=== PATIENT | male | born 1960 | race Two or more races ===

== ENCOUNTER 2016-07-21 23:15 | Emergency (ER) | payer MEDICAID, OTHER ==
[~2016-07-21] VITALS: Ht 180.3 cm; Wt 142.9 kg
[2016-07-22 00:16] LABS: Basophils # (auto) 0.1 uL; Basophils % (auto) 0.9 % (0.0-2.0); Eosinophils # (auto) 0.2 uL; Hematocrit 46.5 % (41.0-53.0); Hemoglobin 15.7 g/dL (13.5-17.5); Lymphocytes # (auto) 3.6 uL; Lymphocytes % (auto) 32.7 % (10.0-50.0); Mean Corpuscular Hemoglobin 28.7 pg (28.0-32.0); Mean Corpuscular Hgb Conc. 33.7 g/dL (32.0-36.0); Mean Corpuscular Volume 85.4 fL (80.0-100.0); Mean Platelet Volume 6.5 fL (7.4-10.4); Monocytes % (auto) 9.2 % (0.0-12.0); Neutrophils % (auto) 55.2 % (37.0-80.0); Platelet Count (auto) 305 10^3/uL (140-450); SUSPECT VIEW TRANSMISSION; White Blood Cell 10.9 10^3/uL (4.4-10.8)
[2016-07-22 00:19] LABS: Albumin 4.2 g/dL (3.4-5.0); Calcium 9.4 mg/dL (8.5-10.1); Potassium 3.5 mmol/L (3.5-5.1)
[2016-07-22 00:21] LABS: Bilirubin, Total 0.3 mg/dL (0.2-1.0); Total Protein 7.9 g/dL (6.4-8.2)
[2016-07-22 04:50] LABS: Urine RBC None Seen /hpf (0 - 3)
[2016-07-22 04:59] LABS: Urine Bilirubin Negative (Negative); Urine Blood Negative /uL (Negative); Urine Ca Oxalate Crystal FEW (None Seen); Urine Color Yellow (Yellow); Urine Glucose Normal (Normal); Urine Ketone Negative (Negative); Urine Nitrite Negative (Negative); Urine Urobilinogen Normal (Negative); Urine pH 5.5 (5.0-8.0)
[2016-07-22] MEDS ORDERED: PANTOPRAZOLE SODIUM 40 MG/10 ML VIAL IV STA (06:32)
[2016-07-22] MEDS ORDERED: SODIUM CHLORIDE 0.9% 1,000 ML IV ONE (06:45)
[2016-07-22] MEDS ORDERED: HYDROmorphone HCL 2 MG/ML VL IV ONE (06:45)
[2016-07-22] MEDS ORDERED: ONDANSETRON HCL 4 MG/2 ML VIAL IV ONE (06:45)
[2016-07-22 07:09] VITALS: BP 123/85
== END 2016-07-22 09:01 | disposition home or self-care (01) ==
LOC: ER 23:18
DX: K29.70 Gastritis, unspecified, without bleeding (principal); I48.91 Unspecified atrial fibrillation; E11.9 Type 2 diabetes mellitus without complications; E78.5 Hyperlipidemia, unspecified; I10 Essential (primary) hypertension; Z85.46 Personal history of malignant neoplasm of prostate; Z91.013 Allergy to seafood
CPT/HCPCS: 36415; 76705; 80053; 81001; 82150; 83690; 84484; 85025; 93005; 94761; 96361; 96374; 96375; 99285; C9113; J1170; J2405; J7030

== ENCOUNTER 2019-08-28 07:16 | Day surgery (SDC) | payer MEDICAID ==
[~2019-08-28] VITALS: Ht 175.3 cm; Wt 147.0 kg
[~2019-08-28 07:16] MED LIST: APIX5TAB PO; DULO60CA PO; HYDR-4833 PO; HYDR12.56 PO; HYDR50CA2 PO; LOSA-39 PO; METF-490 PO; MULT-228 PO; OME20T PO; OMEG1CAP68 PO; QUET100T46 PO; SERT-160 PO; SIMV-8 PO
[2019-08-28] MEDS ORDERED: LIDOCAINE 2%HCL (LOCAL ANESTH.) INJ 20ML MDV ONE (07:42)
[2019-08-28] MEDS ORDERED: IODIXANOL 320MG/ML 100ML BTL IV ONE ×2 (07:43→08:07)
[2019-08-28] MEDS ORDERED: HEPARIN SODIUM (PORCINE) 5000 UNITS/ML 1ML VIAL ONE (08:05)
[2019-08-28] MEDS ORDERED: ANGIOMAX 250 MG VIAL IV ONE (08:05)
[2019-08-28] MEDS ORDERED: VERAPAMIL 2.5MG/ML INJ 2ML VIAL IV ONE (08:05)
[2019-08-28] MEDS ORDERED: fentaNYL CITRATE 100 MCG/2 ML VL ONE (08:06)
[2019-08-28] MEDS ORDERED: MIDAZOLAM HCL 1MG/1ML-2 ML VIAL ONE (08:06)
[2019-08-28] MEDS ORDERED: SODIUM CHL 0.9% 0 ML ONE (08:07)
[2019-08-28] MEDS ORDERED: ONDANSETRON HCL 4 MG/2 ML VIAL IV PRN (09:00)
[2019-08-28] MEDS ORDERED: HYDROcodone-ACET 5/325MG TAB PO PRN (09:00)
[2019-08-28] MEDS ORDERED: ACETAMINOPHEN 500 MG TAB PO PRN (09:00)
== END 2019-08-28 11:00 | disposition home or self-care (01) ==
LOC: CATH 07:16
PROVIDERS: ATTEND Internal Medicine
DX: R94.39 Abnormal result of other cardiovascular function study (principal); I25.10 Atherosclerotic heart disease of native coronary artery without angina pectoris; I10 Essential (primary) hypertension; E78.5 Hyperlipidemia, unspecified; E11.9 Type 2 diabetes mellitus without complications; Z11.59 Encounter for screening for other viral diseases; Z98.890 Other specified postprocedural states; Z79.899 Other long term (current) drug therapy
CPT/HCPCS: 93458; C1769; C1887; C1894; J0583; J1644; J2250; J3010; J7030; Q9967; U0003; 99152